=== PATIENT | male | born 1985 | race Caucasian/White ===

== ENCOUNTER 2018-12-20 05:20 | Observation (INO) | payer BC ==
[2018-12-20] MEDS ORDERED: Sodium Chloride 0.9% 1000 ML 1,000 ML IV STA (06:19)
[2018-12-20] MEDS ORDERED: Sodium Chloride 0.9% 1000 ML 1,000 ML ONE ×2 (06:39→08:28)
[2018-12-20 06:50] LABS: BASOPHIL % 0.3 % (0.0-0.4); Basophil (Absolute #) 0.05 (0-0.4); Eosinophil % 2.1 % (0.00-5.0); Eosinophil (Absolute #) 0.34 (0-0.5); Granulocytes % 72.7 % (36.0-66.0); Hematocrit 45.5 % (42-50); Hemoglobin 14.9 gm/dl (12.5-18.0); Lymphocyte (Absolute #) 2.89 (1.0-4.6); Lymphocytes % 18.3 % (24.0-44.0); Mean Cell Volume 84.6 fl (78-100); Mean Corpuscular Hemoglobin 27.7 pg (26-32); Mean Corpuscular Hgb Concent. 32.7 g/dl (32-36); Mean Platelet Volume 11.4 fl (6-9.5); Monocyte (Absolute #) 1.05 (0.0-1.3); Monocytes % 6.6 % (0.0-12.0); Platelet Count 271 K/mm3 (150-450); Red Blood Count 5.38 M/mm3 (4.1-5.6); Red Cell Distribution Width 13.4 % (11.5-14.0); White Blood Count 15.8 K/mm3 (4.0-10.5)
--- NOTE | 2018-12-20 06:59 | ERPHSYRPT ---
- History of Present Illness Historian: patient Exam Limitations: no limitations Patient Subjective Stated Complaint: pt states he has been having chest/abd pain since saturday. pain begins in lower chest and radiates down through stomach. Triage Nursing Assessment: pt alert and oriented, answers questions approp. pt ambulatory with steady gait noted. respirations nonlabored with lungs cta. abd soft and tender to luq. bowel osunds present x4 Timing/Duration: day(s) Activities at Onset: none Quality: aching, dullness Abdominal Pain Onset Location: RUQ, flank (upper back on right) Pain Radiation: flank Severity of Pain-Max: moderate Severity of Pain-Current: moderate Modifying Factors: Improves With: nothing Hx Tetanus, Diphtheria Vaccination/Date Given: Yes Hx Influenza Vaccination/Date Given: No Hx Pneumococcal Vaccination/Date Given: No Immunizations Up to Date: Yes <HILARIO RESENDEZ - Last Filed: 12/20/18 06:53> <HAILE STEELE - Last Filed: 12/20/18 12:50> - History of Present Illness Physician History: Pt is a 33 y/o male with an abdominal pain, especially on the RUQ and some radiation to R back. Pt states, he had the pain for a while, and a couple of days he took Nexium, and OTC meds, that helped him a little but than the pain is back. Pt denies F/C/S. No SOB or cough. No dysuria, frequency and urgency. No N/V. He had diarrhea a couple of days ago, but it improved now. ( HILARIO RESENDEZ) Allergies/Adverse Reactions: No Known Drug Allergies Allergy (Verified 12/20/18 05:40) Home Medications: Metoprolol Succinate 25 mg Xl* [Toprol-Xl 25MG Tablets] 25 mg PO DAILY [History] - Review of Systems Constitutional: No Fever, No Chills Eyes: No Symptoms Ears, Nose, & Throat: No Symptoms Respiratory: No Cough, No Dyspnea Cardiac: No Chest Pain, No Edema, No Syncope Abdominal/Gastrointestinal: Abdominal Pain, Diarrhea Genitourinary Symptoms: No Dysuria Musculoskeletal: No Back Pain, No Neck Pain Skin: No Rash Neurological: No Dizziness, No Focal Weakness, No Sensory Changes <HILARIO RESENDEZ - Last Filed: 12/20/18 06:53> - Past Medical History Pertinent Past Medical History: Yes Cardiac History: Hypertension Other Medical History: has seen blocker heated metal forms at [facility]- approx 1.5 yrs - Past Surgical History Past Surgical History: Yes Other Surgical History: lymph node removed from - Social History Smoking Status: Never smoker Exposure to second hand smoke: Yes Drug Use: none Patient Lives Alone: No <HILARIO RESENDEZ - Last Filed: 12/20/18 06:53> - Physical Exam General Appearance: mild distress Eye Exam: PERRL/EOMI, eyes nml inspection Ears, Nose, Throat Exam: normal ENT inspection, pharynx normal, moist mucous membranes Neck Exam: normal inspection, non-tender, supple, full range of motion Respiratory Exam: normal breath sounds, lungs clear, No respiratory distress Cardiovascular Exam: regular rate/rhythm, normal heart sounds Gastrointestinal/Abdomen Exam: tenderness (RUQ, and some CVA discomfort on the R ) Back Exam: normal inspection, normal range of motion, No CVA tenderness, No vertebral tenderness Extremity Exam: normal inspection, normal range of motion, pelvis stable Neurologic Exam: alert, oriented x 3, cooperative, normal mood/affect, nml cerebellar function, sensation nml, No motor deficits SpO2: 98 <HILARIO RESENDEZ - Last Filed: 12/20/18 06:53> - Nursing Vital Signs Nursing Vital Signs: Initial Vital Signs Temperature 97.7 F 12/20/18 05:27 Pulse Rate 86 12/20/18 05:27 Respiratory Rate 18 12/20/18 05:27 Blood Pressure 181/89 12/20/18 05:27 O2 Sat by Pulse Oximetry 98 12/20/18 05:27 Pain Scale Pain Intensity 6 - CT Exams Abdomen/Pelvis CT Interpretation: Tele-radiologist Report (CT abdomen and pelvis: Impression 1. Dilated gallbladder with . Cholecystic edema. there is likely a tiny obstructing stone in the gallbladder neck on image 21 series 2. These findings most likely represent acute cholecystitis 2. Hepatic steatosis. 3. Splenomegaly. The goal is a history of high blood pressure apparently complaining of pain in the area that radiated from about the epigastric around the right flank when the 55th no vomiting or vomiting here a white count of 13 vitals are stable.), appendicitis ( good on. He has a CBC that shows a dilated gallbladder with pericholecystic cholecystic edema a few there is likely a tiny obstructing stone in the gallbladder neck on 31 series. Findings most likely represent acute cholecystitis he has hepatic steatosis or megaly family and lipase basically he got some IV fluids that he got a total of) <HAILE STEELE - Last Filed: 12/20/18 12:50> Ordered Tests: Active Orders 24 hr Category Date Time Status Bedrest with BRP/BSC ROUTINE Activity 12/20/18 10:09 Active Call Admit Doctor for Orders ON ADMISSION Care 12/20/18 10:09 Active Code Status Order ROUTINE Care 12/20/18 10:09 Active IV Care Q6H Care 12/20/18 10:09 Active Intake and Output Q12H Care 12/20/18 10:[address] in Observation ROUTINE Care 12/20/18 10:09 Active Telemetry q6h Care 12/20/18 10:09 Active Consult Surgery ROUTINE Cons 12/20/18 10:09 Completed NPO Diet 12/20/18 10:11 Active ABDOMEN AND PELVIS W CONTRAST [CT] Stat Exams 12/20/18 06:20 Taken CBC W DIFF AM.LAB Lab 12/21/18 04:00 Ordered CBC W DIFF Stat Lab 12/20/18 06:19 Completed CMP AM.LAB Lab 12/21/18 04:00 Ordered CMP Stat Lab 12/20/18 07:00 Completed LIPASE Stat Lab 12/20/18 07:00 Completed TROPONIN Q3H Lab 12/20/18 07:00 Completed UA W/RFX UR CULTURE Stat Lab 12/20/18 07:15 Completed Pulse Oximetry CONTINUOUS RT 12/20/18 10:09 Active Transfer Order Routine Transfer 12/20/18 Completed Medication Summary Generic Name Dose Route Start Last Admin Trade Name Freq PRN Reason Stop Dose Admin Hydromorphone HCl 1 mg 12/20/18 10:30 12/20/18 11:05 Dilaudid 2 Mg Injection IV 12/25/18 10:29 1 mg Q4H PRN PRN Administration PAIN Sodium Chloride 1,000 mls @ 100 mls/hr 12/20/18 10:09 Sodium Chloride 0.9% 1000 Ml IV 01/19/19 10:08 .Q10H EMELY Lactated Ringer's 1,000 mls @ 100 mls/hr 12/20/18 11:30 Lactated Ringers IV 12/20/18 21:29 .Q10H EMELY Cefoxitin Sodium 2 gm in 50 mls @ 100 mls/hr 12/20/18 12:00 Mefoxin 2 Gm Premix IV 12/20/18 20:00 ONCALLTOOR EMELY Metoprolol Succinate 25 mg 12/20/18 12:00 12/20/18 12:46 Toprol-Xl 25mg Tablets PO 01/19/19 11:59 25 mg DAILY EMELY Administration Ondansetron HCl 4 mg 12/20/18 10:09 Zofran 4 Mg/2 Ml Vial IV 01/19/19 10:08 Q6H PRN PRN NAUSEA/VOMITING Discontinued Medications Generic Name Dose Route Start Last Admin Trade Name Freq PRN Reason Stop Dose Admin Sodium Chloride 1,000 mls @ 999 mls/hr 12/20/18 06:19 12/20/18 08:24 Sodium Chloride 0.9% 1000 Ml IV 12/20/18 07:19 Infused .Q1H1M STA Infusion Sodium Chloride Confirm 12/20/18 06:39 Sodium Chloride 0.9% 1000 Ml Administered 12/20/18 06:40 Dose 1,000 mls @ ud .ROUTE .STK-MED ONE Sodium Chloride Confirm 12/20/18 08:28 Sodium Chloride 0.9% 1000 Ml Administered 12/20/18 08:29 Dose 1,000 mls @ ud .ROUTE .STK-MED ONE Sodium Chloride 1,000 mls @ 100 mls/hr 12/20/18 08:45 12/20/18 08:40 Sodium Chloride 0.9% 1000 Ml IV 01/19/19 08:44 100 mls/hr .Q10H EMELY Administration Morphine Sulfate 2 mg 12/20/18 07:02 12/20/18 07:09 Morphine Sulfate 2 Mg Inj IV 12/20/18 07:03 2 mg STAT ONE Administration Morphine Sulfate Confirm 12/20/18 07:07 Morphine Sulfate 2 Mg Inj Administered 12/20/18 07:08 Dose 2 mg .ROUTE .STK-MED ONE Morphine Sulfate 4 mg 12/20/18 08:18 12/20/18 08:35 Morphine Sulfate 4 Mg Inj IV 12/20/18 08:19 4 mg STAT ONE Administration Morphine Sulfate Confirm 12/20/18 08:27 Morphine Sulfate 4 Mg Inj Administered 12/20/18 08:28 Dose 4 mg .ROUTE .STK-MED ONE Morphine Sulfate 4 mg 12/20/18 09:06 12/20/18 09:12 Morphine Sulfate 4 Mg Inj IV 12/20/18 09:07 4 mg STAT ONE Administration Morphine Sulfate Confirm 12/20/18 09:08 Morphine Sulfate 4 Mg Inj Administered 12/20/18 09:09 Dose 4 mg .ROUTE .STK-MED ONE Morphine Sulfate 4 mg 12/20/18 10:09 12/20/18 10:25 Morphine Sulfate 4 Mg Inj IV 12/25/18 10:08 4 mg Q4H PRN PRN Administration PAIN Ondansetron HCl 4 mg 12/20/18 07:18 12/20/18 07:20 Zofran 4 Mg/2 Ml Vial IV 12/20/18 07:19 4 mg STAT ONE Administration Ondansetron HCl Confirm 12/20/18 07:19 Zofran 4 Mg/2 Ml Vial Administered 12/20/18 07:20 Dose 4 mg .ROUTE .STK-MED ONE Ondansetron HCl 4 mg 12/20/18 09:06 12/20/18 09:11 Zofran 4 Mg/2 Ml Vial IV 12/20/18 09:07 4 mg STAT ONE Administration Ondansetron HCl Confirm 12/20/18 09:08 Zofran 4 Mg/2 Ml Vial Administered 12/20/18 09:09 Dose 4 mg .ROUTE .STK-MED ONE Promethazine HCl 25 mg 12/20/18 08:18 12/20/18 09:04 Phenergan 25 Mg Inj IM 12/20/18 08:19 Not Given STAT ONE Promethazine HCl Confirm 12/20/18 08:27 Phenergan 25 Mg Inj Administered 12/20/18 08:28 Dose 25 mg .ROUTE .STK-MED ONE Lab/Rad Data: Laboratory Result Diagrams 12/20/18 06:19 12/20/18 07:00 Laboratory Results 12/20/18 12/20/18 12/20/18 Range/Units 07:15 07:00 07:00 WBC (4.0-10.5) K/mm3 RBC (4.1-5.6) M/mm3 Hgb (12.5-18.0) gm/dl Hct (42-50) % MCV (78-100) fl MCH (26-32) pg MCHC (32-36) g/dl RDW (11.5-14.0) % Plt Count (150-450) K/mm3 MPV (6-9.5) fl Gran % (36.0-66.0) % Eos # (Auto) (0-0.5) Absolute Lymphs (auto) (1.0-4.6) Absolute Monos (auto) (0.0-1.3) Lymphocytes % (24.0-44.0) % Monocytes % (0.0-12.0) % Eosinophils % (0.00-5.0) % Basophils % (0.0-0.4) % Absolute Granulocytes (1.4-6.9) Basophils # (0-0.4) Sodium 142 (137-145) mmol/L Potassium 4.5 (3.5-5.1) mmol/L Chloride 103 (98-107) mmol/L Carbon Dioxide 29 (22-30) mmol/L Anion Gap 14.2 (5-15) MEQ/L BUN 12 (9-20) mg/dL Creatinine 1.02 (0.66-1.25) mg/dL Estimated GFR > 60.0 ML/MIN Glucose 123 H (74-106) mg/dL Calcium 9.7 (8.4-10.2) mg/dL Total Bilirubin 0.50 (0.2-1.3) mg/dL AST 23 (17-59) U/L ALT 40 (0-50) U/L Alkaline Phosphatase 77 (38-126) U/L Troponin I < 0.012 (0.000-0.034) ng/mL Serum Total Protein 7.4 (6.3-8.2) g/dL Albumin 4.2 (3.5-5.0) g/dL Lipase 35 (23-300) U/L Urine Color YELLOW (YELLOW) Urine Appearance CLEAR (CLEAR) Urine pH 7.0 (5-6) Ur Specific [place] 1.024 (1.005-1.025) Urine Protein 30 (Negative) Urine Ketones NEGATIVE (NEGATIVE) Urine Blood NEGATIVE (0-5) Vincent/ul Urine Nitrite NEGATIVE (NEGATIVE) Urine Bilirubin NEGATIVE (NEGATIVE) Urine Urobilinogen NEGATIVE (0-1) mg/dL Ur Leukocyte Esterase NEGATIVE (NEGATIVE) Urine WBC (Auto) NONE (0-5) /HPF Urine RBC (Auto) NONE (0-2) /HPF U Hyaline Cast (Auto) 3-5 (0-2) /LPF Urine Bacteria (Auto) NONE (NEGATIVE) /HPF Urine Mucus (Auto) SLIGHT (NEGATIVE) /HPF Urine Culture Reflexed NO (NO) Urine Glucose NEGATIVE (NEGATIVE) mg/dL 12/20/18 Range/Units 06:19 WBC 15.8 H (4.0-10.5) K/mm3 RBC 5.38 (4.1-5.6) M/mm3 Hgb 14.9 (12.5-18.0) gm/dl Hct 45.5 (42-50) % MCV 84.6 (78-100) fl MCH 27.7 (26-32) pg MCHC 32.7 (32-36) g/dl RDW 13.4 (11.5-14.0) % Plt Count 271 (150-450) K/mm3 MPV 11.4 H (6-9.5) fl Gran % 72.7 H (36.0-66.0) % Eos # (Auto) 0.34 (0-0.5) Absolute Lymphs (auto) 2.89 (1.0-4.6) Absolute Monos (auto) 1.05 (0.0-1.3) Lymphocytes % 18.3 L (24.0-44.0) % Monocytes % 6.6 (0.0-12.0) % Eosinophils % 2.1 (0.00-5.0) % Basophils % 0.3 (0.0-0.4) % Absolute Granulocytes 11.50 H (1.4-6.9) Basophils # 0.05 (0-0.4) Sodium (137-145) mmol/L Potassium (3.5-5.1) mmol/L Chloride (98-107) mmol/L Carbon Dioxide (22-30) mmol/L Anion Gap (5-15) MEQ/L BUN (9-20) mg/dL Creatinine (0.66-1.25) mg/dL Estimated GFR ML/MIN Glucose (74-106) mg/dL Calcium (8.4-10.2) mg/dL Total Bilirubin (0.2-1.3) mg/dL AST (17-59) U/L ALT (0-50) U/L Alkaline Phosphatase (38-126) U/L Troponin I (0.000-0.034) ng/mL Serum Total Protein (6.3-8.2) g/dL Albumin (3.5-5.0) g/dL Lipase (23-300) U/L Urine Color (YELLOW) Urine Appearance (CLEAR) Urine pH (5-6) Ur Specific [place] (1.005-1.025) Urine Protein (Negative) Urine Ketones (NEGATIVE) Urine Blood (0-5) Vincent/ul Urine Nitrite (NEGATIVE) Urine Bilirubin (NEGATIVE) Urine Urobilinogen (0-1) mg/dL Ur Leukocyte Esterase (NEGATIVE) Urine WBC (Auto) (0-5) /HPF Urine RBC (Auto) (0-2) /HPF U Hyaline Cast (Auto) (0-2) /LPF Urine Bacteria (Auto) (NEGATIVE) /HPF Urine Mucus (Auto) (NEGATIVE) /HPF Urine Culture Reflexed (NO) Urine Glucose (NEGATIVE) mg/dL <HILARIO RESENDEZ - Last Filed: 12/20/18 06:53> - Progress Progress: improved <HAILE STEELE - Last Filed: 12/20/18 12:50> - Progress Progress Note: 12/20/18 06:59 Pt complains of abdominal pain. CT of abdomen and labs were ordered. Pt was signed out to Dr Steele. (HILARIO RESENDEZ) 12/20/18 08:18 This is a 33-year-old white male initially seen by Dr. Resendez patient with complaint of right upper quadrant abdominal pain radiating to the right flank symptoms been going on for approximately a week he has states she has been having no nausea or vomiting initially but has vomited since he has been here he has no urinary symptoms he is not short of breath. Past medical history includes high blood pressure apparently was seen by a blocker heated metal forms 1-1/2 years ago. On physical examination vitals temperature 97.7 pulse 86 respiration 18 blood pressure 181/89 sats 98%. Head atraumatic normocephalic. Eyes PERRLA EOMI fundi are unremarkable. Ears TMs merrill intact bilaterally. Nose is clear. Throat is clear. Neck is supple. Lungs clear. Heart regular rate and rhythm without murmur. Abdomen right upper quadrant tenderness positive bowel sounds negative masses negative rebound. Extremities full range of motion pulse equal and symmetrical 2 over 4. Back right flank tenderness. Neuro cranial nerves II through XII are intact DTRs symmetrical 2 over 4 Angella Coma Scale is 15. EKG sinus arrhythmia [address] or T wave changes are noted chemistry sodium 142 potassium 4.5 chloride 103 bicarbonate 29 BUN 12 creatinine 1.02 glucose 123. White blood cell 15.8 hemoglobin 14.9 hematocrit 45.[address] of the patient's abdomen is pending. Patient apparently received 2 mg of morphine ordered by Dr. Resendez. Also 1 L of normal saline also Zofran 4 mg IV. Patient continues to complain of pain in the right upper quadrant. Will go ahead and give patient Phenergan 25 mg IM morphine [address] results. 12/20/18 08:[address] of the abdomen impression 1 dilated gallbladder with pericholecystic edema. There is likely a tiny obstructing stone in the gallbladder neck on image 31 series 2. These findings most likely represent acute cholecystitis. 2. Hepatic steatosis 3. Splenomegaly. Case is discussed with Dr. looking independent marketing consultant for surgery he recommends placing the patient on observation under the hospitalist and obtaining a surgery consult. 12/20/18 09:07 Patient's case is discussed with Dr. Pearson. Will place patient on observation provide IV fluids keep patient nothing by mouth provide morphine and Zofran obtain surgery consult. (HAILE STEELE) <HILARIO RESENDEZ - Last Filed: 12/20/18 06:53> - Departure Departure Disposition: Observation Critical Care Time: No <HAILE STEELE - Last Filed: 12/20/18 12:50> - Departure Clinical Impression: Right upper quadrant abdominal pain, Cholecystitis Condition: Fair
[2018-12-20] MEDS ORDERED: MORPHINE SULFATE 2 MG INJ IV ONE (07:02)
[2018-12-20] MEDS ORDERED: MORPHINE SULFATE 2 MG INJ ONE (07:07)
[2018-12-20] MEDS ORDERED: Zofran 4 MG/2 ML VIAL IV ONE ×3 (07:18→12:09)
[2018-12-20 07:19] LABS: ALBUMIN 4.2 g/dL (3.5-5.0); ALKALINE PHOSPHATASE 77 U/L (38-126); ANION GAP 14.2 MEQ/L (5-15); BLOOD UREA NITROGEN 12 mg/dL (9-20); CHLORIDE 103 mmol/L (98-107); Calcium 9.7 mg/dL (8.4-10.2); Carbon Dioxide 29 mmol/L (22-30); Creatinine 1 1.02 mg/dL (0.66-1.25); Glucose 123 mg/dL (74-106); LIPASE 35 U/L (23-300); Potassium 4.5 mmol/L (3.5-5.1); SGOT/AST 23 U/L (17-59); SGPT/ALT 40 U/L (0-50); SODIUM 142 mmol/L (137-145); Total Protein 7.4 g/dL (6.3-8.2)
[2018-12-20] MEDS ORDERED: Zofran 4 MG/2 ML VIAL ONE ×2 (07:19→09:08)
[2018-12-20 07:40] LABS: Appearance CLEAR (CLEAR); Bilirubin NEGATIVE (NEGATIVE); Blood NEGATIVE Ery/ul (0-5); Glucose NEGATIVE (NEGATIVE); Ketones NEGATIVE (NEGATIVE); Leukocyte Esterase NEGATIVE (NEGATIVE); Mucus SLIGHT /HPF (NEGATIVE); Nitrite NEGATIVE (NEGATIVE); Protein,Urine Dip 30 (Negative); Specific Gravity 1.024 (1.005-1.025); Urobilinogen NEGATIVE mg/dL (0-1)
[2018-12-20] MEDS ORDERED: Phenergan 25 MG INJ IM ONE (08:18)
[2018-12-20] MEDS ORDERED: MORPHINE SULFATE 4 MG INJ IV ONE ×2 (08:18→09:06)
[2018-12-20] MEDS ORDERED: Phenergan 25 MG INJ ONE (08:27)
[2018-12-20] MEDS ORDERED: MORPHINE SULFATE 4 MG INJ ONE ×2 (08:27→09:08)
[2018-12-20] MEDS ORDERED: Sodium Chloride 0.9% 1000 ML 1,000 ML IV SCH ×2 (08:45→10:09)
[2018-12-20] MEDS ORDERED: MORPHINE SULFATE 4 MG INJ IV PRN ×2 (10:09→18:18)
[2018-12-20] MEDS ORDERED: Zofran 4 MG/2 ML VIAL IV PRN ×2 (10:09→18:16)
[2018-12-20] MEDS ORDERED: DILAUDID 2 MG INJECTION IV PRN (10:30)
[2018-12-20] MEDS ORDERED: Lactated Ringers 1,000 ML IV SCH (11:30)
[2018-12-20] MEDS ORDERED: MEFOXIN 2 GM PREMIX** 2 GM/50 ML ML IV SCH (12:00)
[2018-12-20] MEDS ORDERED: BRIDION 200MG/2ML IV ONE (12:09)
[2018-12-20] MEDS ORDERED: Decadron 4 MG INJ IV ONE (12:09)
[2018-12-20] MEDS ORDERED: TORAdol 30 mg Injection IJ ONE (12:09)
[2018-12-20] MEDS ORDERED: SUBLIMAZE 100 MCG/2 ML IV ONE (12:09)
[2018-12-20] MEDS ORDERED: Quelicin Fliptop 200 MG/10 ML IJ ONE (12:09)
[2018-12-20] MEDS ORDERED: Zemuron 100 MG/10 ML IJ ONE (12:09)
[2018-12-20] MEDS ORDERED: DIPRIVAN 200 MG/20 ML IV ONE (12:09)
[2018-12-20] MEDS: Toprol-Xl 25MG Tablets PO SCH (12:46)
--- NOTE | 2018-12-20 14:42 | PCM.HP ---
History of Present Illness - Chief Complaint Chief Complaint: Ruq abdominal pain History of Present Illness: Mr.GOLISH RIVAS is a 33 year old male pt of DR. Forde in [place] with PMHx HTN and obesity who came to ER c/o 2d of abd pain. Pain is epigastric and RUQ, with some Vomiting, subjective fever. Worse with movement. Had received morphine in ER; dilaudid is helping his pain more. He receive 1mg dilaudid about 3.5 h ago and is still having 7/[address] abd/pelvis with dilated GB with pericholestatic edema, acute cholecystitis. Surgery team is on the way. WBC 15.8, hgb 14.9. Chemistry wnl aside from BS 123. lipase nl. Tbili 0.5. UA wnl. His BP has been elevated; has just been given toprol 25mg. - Review of Systems Constitutional: Fever Cardiac: Edema Abdominal/Gastrointestinal: Abdominal Pain, Nausea, Vomiting All Other Systems: Reviewed and Negative Medications & Allergies Home Medications: Home Medication List Metoprolol Succinate 25 mg Xl* [Toprol-Xl 25MG Tablets] 25 mg PO DAILY [History Confirmed 12/20/18] Allergies/Adverse Reactions: Allergies Allergy/AdvReac Type Severity Reaction Status Date / Time No Known Drug Allergies Allergy Verified 12/20/18 05:40 - Past Medical History Past Medical History: Yes Neurological History: No Pertinent History ENT History: No Pertinent History Cardiac History: Hypertension Respiratory History: No Pertinent History Endocrine Medical History: No Pertinent History Musculoskelatal History: No Pertinent History GI Medical History: No Pertinent History History: No Pertinent History Pyscho-Social History: No Pertinent History Male Reproductive Disorders: No Pertinent History Comment: n/a - Past Surgical History Past Surgical History: Yes Neuro Surgical History: No Pertinent History Cardiac History: No Pertinent History Respiratory Surgery: No Pertinent History GI Surgical History: No Pertinent History Genitourinary Surgical Hx: No Pertinent History Musculskeletal Surgical Hx: No Pertinent History Male Surgical History: No Pertinent History Other Surgical History: Lymph node removed from the groin at 6yr. benign - Social History Smoking Status: Never smoker How long have you smoked: . Exposure to second hand smoke: No Alcohol: Occasionally, Weekly Drug Use: none - Physical Exam Vital Signs: Vital Signs - 24 hr Temp Pulse Pulse Resp BP Pulse Ox 12/20/18 12:49 98.3 F 61 16 167/77 94 L 12/20/18 11:30 98.3 F 61 16 167/77 94 L 12/20/18 10:40 98.3 F 61 16 167/77 94 L 12/20/18 10:30 98.3 F 61 18 167/77 94 L 12/20/18 10:10 98.3 F 61 18 167/77 94 L 12/20/18 10:09 98.3 F 61 18 167/77 94 L 12/20/18 09:50 98.3 F 61 16 167/77 12/20/18 09:16 20 169/95 96 12/20/18 07:15 83 16 170/92 98 12/20/18 07:00 98 12/20/18 05:27 97.7 F 86 86 18 181/89 98 General Appearance: mild distress, alert, obese Neurologic Exam: oriented x 3, cooperative Eye Exam: eyes nml inspection Ears, Nose, Throat Exam: moist mucous membranes Neck Exam: normal inspection, non-tender, No lymphadenopathy Respiratory Exam: normal breath sounds, lungs clear, No crackles/rales, No rhonchi Cardiovascular Exam: regular rate/rhythm, normal heart sounds, No murmur Gastrointestinal/Abdomen Exam: soft, normal bowel sounds, tenderness (RLQ, RUQ, and epigastrum), No mass, No guarding, No rebound Back Exam: normal inspection, No rash Extremity Exam: swelling (1+ pretibial edema bilat) Skin Exam: warm, dry, No normal color (face flushed), No rash Results - Labs Lab/Micro Results: Lab Results-Last 24 Hours 12/20/18 12/20/18 12/20/18 Range/Units 06:19 07:00 07:00 WBC 15.8 H (4.0-10.5) K/mm3 RBC 5.38 (4.1-5.6) M/mm3 Hgb 14.9 (12.5-18.0) gm/dl Hct 45.5 (42-50) % MCV 84.6 (78-100) fl MCH 27.7 (26-32) pg MCHC 32.7 (32-36) g/dl RDW 13.4 (11.5-14.0) % Plt Count 271 (150-450) K/mm3 MPV 11.4 H (6-9.5) fl Gran % 72.7 H (36.0-66.0) % Eos # (Auto) 0.34 (0-0.5) Absolute Lymphs (auto) 2.89 (1.0-4.6) Absolute Monos (auto) 1.05 (0.0-1.3) Lymphocytes % 18.3 L (24.0-44.0) % Monocytes % 6.6 (0.0-12.0) % Eosinophils % 2.1 (0.00-5.0) % Basophils % 0.3 (0.0-0.4) % Absolute Granulocytes 11.50 H (1.4-6.9) Basophils # 0.05 (0-0.4) Sodium 142 (137-145) mmol/L Potassium 4.5 (3.5-5.1) mmol/L Chloride 103 (98-107) mmol/L Carbon Dioxide 29 (22-30) mmol/L Anion Gap 14.2 (5-15) MEQ/L BUN 12 (9-20) mg/dL Creatinine 1.02 (0.66-1.25) mg/dL Estimated GFR > 60.0 ML/MIN Glucose 123 H (74-106) mg/dL Calcium 9.7 (8.4-10.2) mg/dL Total Bilirubin 0.50 (0.2-1.3) mg/dL AST 23 (17-59) U/L ALT 40 (0-50) U/L Alkaline Phosphatase 77 (38-126) U/L Troponin I < 0.012 (0.000-0.034) ng/mL Serum Total Protein 7.4 (6.3-8.2) g/dL Albumin 4.2 (3.5-5.0) g/dL Lipase 35 (23-300) U/L Urine Color (YELLOW) Urine Appearance (CLEAR) Urine pH (5-6) Ur Specific [place] (1.005-1.025) Urine Protein (Negative) Urine Ketones (NEGATIVE) Urine Blood (0-5) Vincent/ul Urine Nitrite (NEGATIVE) Urine Bilirubin (NEGATIVE) Urine Urobilinogen (0-1) mg/dL Ur Leukocyte Esterase (NEGATIVE) Urine WBC (Auto) (0-5) /HPF Urine RBC (Auto) (0-2) /HPF U Hyaline Cast (Auto) (0-2) /LPF Urine Bacteria (Auto) (NEGATIVE) /HPF Urine Mucus (Auto) (NEGATIVE) /HPF Urine Culture Reflexed (NO) Urine Glucose (NEGATIVE) mg/dL 12/20/18 Range/Units 07:15 WBC (4.0-10.5) K/mm3 RBC (4.1-5.6) M/mm3 Hgb (12.5-18.0) gm/dl Hct (42-50) % MCV (78-100) fl MCH (26-32) pg MCHC (32-36) g/dl RDW (11.5-14.0) % Plt Count (150-450) K/mm3 MPV (6-9.5) fl Gran % (36.0-66.0) % Eos # (Auto) (0-0.5) Absolute Lymphs (auto) (1.0-4.6) Absolute Monos (auto) (0.0-1.3) Lymphocytes % (24.0-44.0) % Monocytes % (0.0-12.0) % Eosinophils % (0.00-5.0) % Basophils % (0.0-0.4) % Absolute Granulocytes (1.4-6.9) Basophils # (0-0.4) Sodium (137-145) mmol/L Potassium (3.5-5.1) mmol/L Chloride (98-107) mmol/L Carbon Dioxide (22-30) mmol/L Anion Gap (5-15) MEQ/L BUN (9-20) mg/dL Creatinine (0.66-1.25) mg/dL Estimated GFR ML/MIN Glucose (74-106) mg/dL Calcium (8.4-10.2) mg/dL Total Bilirubin (0.2-1.3) mg/dL AST (17-59) U/L ALT (0-50) U/L Alkaline Phosphatase (38-126) U/L Troponin I (0.000-0.034) ng/mL Serum Total Protein (6.3-8.2) g/dL Albumin (3.5-5.0) g/dL Lipase (23-300) U/L Urine Color YELLOW (YELLOW) Urine Appearance CLEAR (CLEAR) Urine pH 7.0 (5-6) Ur Specific [place] 1.024 (1.005-1.025) Urine Protein 30 (Negative) Urine Ketones NEGATIVE (NEGATIVE) Urine Blood NEGATIVE (0-5) Vincent/ul Urine Nitrite NEGATIVE (NEGATIVE) Urine Bilirubin NEGATIVE (NEGATIVE) Urine Urobilinogen NEGATIVE (0-1) mg/dL Ur Leukocyte Esterase NEGATIVE (NEGATIVE) Urine WBC (Auto) NONE (0-5) /HPF Urine RBC (Auto) NONE (0-2) /HPF U Hyaline Cast (Auto) 3-5 (0-2) /LPF Urine Bacteria (Auto) NONE (NEGATIVE) /HPF Urine Mucus (Auto) SLIGHT (NEGATIVE) /HPF Urine Culture Reflexed NO (NO) Urine Glucose NEGATIVE (NEGATIVE) mg/dL - Radiology Impressions Radiology Exams & Impressions: Radiology Procedures Category Date Time Status ABDOMEN AND PELVIS W CONTRAST [CT] Stat Exams 12/20/18 06:20 Taken Assessment/Plan (1) Cholecystitis Current Visit: Yes Status: Acute Assessment & Plan: Surgery coming to do cholecystectomy, thank you. Code(s): K81.9 - CHOLECYSTITIS, UNSPECIFIED (2) HTN (hypertension) Current Visit: Yes Status: Acute Qualifiers: Hypertension type: essential hypertension Qualified Code(s): I10 - Essential (primary) hypertension Assessment & Plan: metoprolol on board, bp has been elevated. pt still in pain. Code(s): I10 - ESSENTIAL (PRIMARY) HYPERTENSION VTE Quality Measures - VTE Quality Measures VTE Mechanical Contraindication: Medical Contraindication
[2018-12-20] MEDS: DILAUDID 2 MG INJECTION IV PRN ×3 (14:46→23:59)
[2018-12-20] MEDS ORDERED: Lactated Ringers 1,000 ML IV ONE (15:06)
[2018-12-20] MEDS ORDERED: Sensorcaine 0.25% 10 ML ONE (15:06)
[2018-12-20] MEDS ORDERED: SUBLIMAZE 100 MCG/2 ML ONE (16:47)
[2018-12-20] MEDS ORDERED: DILAUDID 2 MG INJECTION ONE (16:52)
--- NOTE | 2018-12-20 17:46 | XRAY ---
Indication: Abdomen pain. Nausea, vomiting, and heartburn. Multiple contiguous axial images obtained through the abdomen and pelvis using 80 cc Isovue 370 contrast only. Comparison: None Lung bases demonstrates small left base calcified granuloma. No infiltrate or effusion. Heart is not enlarged. Noncontrasted stomach and bowel loops appear nonobstructed. Normal appendix. No free fluid/air. Gallbladder appears mildly distended with tiny stone near the neck and mild pericholecystic fluid concerning for cholecystitis. No biliary distention. Spleen is enlarged measuring 16 cm in CC dimension. Remaining liver, pancreas, spleen, adrenal glands, kidneys, ureters, bladder, and aorta appear unremarkable. No pathologic retroperitoneal lymphadenopathy. Osseous structures intact. No ventral or inguinal hernias. Impression: 1. Abnormal distended gallbladder with tiny gallstone and pericholecystic fluid. Rule out cholecystitis. 2. Splenomegaly. Comment: Preliminary interpretation was made by [facility]. No discrepancy. CTDI 23.68
[2018-12-20] MEDS ORDERED: D5W/0.45NS W/ 20mEq KCl 1000 ML 1,000 ML IV ONE (18:07)
[2018-12-20] MEDS ORDERED: FEVERALL 650 MG PR PRN (18:13)
[2018-12-20] MEDS: D5W/0.45NS W/ 20mEq KCl 1000 ML 1,000 ML IV SCH (18:35)
[2018-12-20] MEDS: Zosyn 3.375GM/100 Ml D5W 3.375 GM/100 ML IVPB IV SCH (19:35)
[2018-12-21] MEDS: DILAUDID 2 MG INJECTION IV PRN ×3 (04:01→19:32)
[2018-12-21] MEDS: D5W/0.45NS W/ 20mEq KCl 1000 ML 1,000 ML IV SCH ×2 (05:26→16:32)
[2018-12-21] MEDS: Zosyn 3.375GM/100 Ml D5W 3.375 GM/100 ML IVPB IV SCH ×4 (05:30→18:55)
[2018-12-21 06:15] LABS: BASOPHIL % 0.2 % (0.0-0.4); Basophil (Absolute #) 0.03 (0-0.4); Eosinophil % 0.2 % (0.00-5.0); Eosinophil (Absolute #) 0.04 (0-0.5); Granulocyte Absolute (ANC) 14.69 (1.4-6.9); Granulocytes % 80.6 % (36.0-66.0); Hematocrit 38.1 % (42-50); Hemoglobin 12.5 gm/dl (12.5-18.0); Lymphocyte (Absolute #) 2.14 (1.0-4.6); Lymphocytes % 11.8 % (24.0-44.0); Mean Cell Volume 85.8 fl (78-100); Mean Corpuscular Hemoglobin 28.2 pg (26-32); Mean Corpuscular Hgb Concent. 32.8 g/dl (32-36); Mean Platelet Volume 11.2 fl (6-9.5); Monocyte (Absolute #) 1.31 (0.0-1.3); Monocytes % 7.2 % (0.0-12.0); Platelet Count 286 K/mm3 (150-450); Red Blood Count 4.44 M/mm3 (4.1-5.6); Red Cell Distribution Width 13.4 % (11.5-14.0); White Blood Count 18.2 K/mm3 (4.0-10.5)
[2018-12-21 06:39] LABS: ALBUMIN 3.7 g/dL (3.5-5.0); ALKALINE PHOSPHATASE 58 U/L (38-126); ANION GAP 13.3 MEQ/L (5-15); BLOOD UREA NITROGEN 10 mg/dL (9-20); CHLORIDE 102 mmol/L (98-107); Carbon Dioxide 28 mmol/L (22-30); Creatinine 1 0.97 mg/dL (0.66-1.25); Glucose 129 mg/dL (74-106); Potassium 4.8 mmol/L (3.5-5.1); SGOT/AST 31 U/L (17-59); SGPT/ALT 32 U/L (0-50); SODIUM 138 mmol/L (137-145); Total Protein 6.8 g/dL (6.3-8.2)
[2018-12-21] MEDS ORDERED: TYLENOL 325 MG PO PRN (07:19)
[2018-12-21] MEDS: NORCO 5/325 MG PO PRN ×2 (08:10→16:33)
[2018-12-21] MEDS: Toprol-Xl 25MG Tablets PO SCH (12:46)
--- NOTE | 2018-12-21 13:50 | PCM.NOTE ---
Date and Time: 12/21/18 1347 Subjective Assessment: Feeling much better than yesterday prior to surgery. He did have dilaudid x 2 overnight, otherwise has been taking norco. At the time of my exam he did want an injection of dilaudid. Surgery is releasing pt from their standpoint. His WBC were elevated this morning (to 18.2 from 15.8). Afebrile. Tolerating po. He did get up and walk a lot yesterday. - Review of Systems Constitutional: No Fever Abdominal/Gastrointestinal: Abdominal Pain Objective Exam General Appearance: no apparent distress, alert, obese Neurologic Exam: oriented x 3, cooperative Skin Exam: warm, dry, No rash Respiratory Exam: normal breath sounds, lungs clear, No crackles/rales, No rhonchi, No wheezing Cardiovascular Exam: regular rate/rhythm, normal heart sounds, No murmur Gastrointestinal/Abdomen Exam: soft, normal bowel sounds, tenderness (RUQ), other (dressings c/d/i), No distention, No mass, No guarding, No rebound Extremity Exam: normal inspection, swelling (trace pretibial edema bilat) Back Exam: normal inspection, No rash OBJECTIVE DATA Vital Signs: Vital Signs - 24 hr Temp Pulse Resp BP Pulse Ox 12/21/18 12:11 98.3 F 70 18 115/56 96 12/21/18 11:30 98 12/21/18 07:40 98.2 F 65 18 118/57 99 12/21/18 05:15 98.6 F 67 16 116/53 94 L 12/21/18 04:00 16 12/21/18 01:00 98.6 F 71 18 121/59 96 12/21/18 00:00 20 12/20/18 21:05 99.1 F 77 18 116/51 94 L 12/20/18 20:05 99.0 F 77 18 141/62 94 L 12/20/18 20:00 18 12/20/18 19:05 99.3 F 80 20 159/72 96 12/20/18 18:35 97.8 F 70 18 149/73 96 12/20/18 18:05 98.0 F 86 18 122/58 96 12/20/18 17:35 98.1 F 71 18 131/64 96 12/20/18 17:20 99.2 F 87 18 120/59 94 L 04/27/19 15:00 98.8 F 64 18 180/88 96 12/20/18 14:09 98.8 F 64 18 180/88 Oxygen-Last 24 hours O2 Percentage 2 Liters = 28% O2 Percentage 2 Liters = 28% O2 Percentage 2 Liters = 28% O2 Percentage 2 Liters = 28% O2 Percentage 2 Liters = 28% O2 Percentage 2 Liters = 28% O2 Percentage 2 Liters = 28% Pain Assessment - Last Documented Pain Intensity 5 Pain Scale Used 0-10 Pain Scale Intake and Output: Intake & Output 12/19/18 12/20/18 12/21/18 12/22/18 11:59 11:59 11:59 11:59 Intake Total 2412 Output Total 0 2075 Balance 0 337 Weight 146.9 kg 146.9 kg Lab Results: Lab Results-Last 24 Hours 12/21/18 12/21/18 12/21/18 Range/Units 05:00 05:50 05:50 WBC 18.2 H (4.0-10.5) K/mm3 RBC 4.44 (4.1-5.6) M/mm3 Hgb 12.5 (12.5-18.0) gm/dl Hct 38.1 L (42-50) % MCV 85.8 (78-100) fl MCH 28.2 (26-32) pg MCHC 32.8 (32-36) g/dl RDW 13.4 (11.5-14.0) % Plt Count 286 (150-450) K/mm3 MPV 11.2 H (6-9.5) fl Gran % 80.6 H (36.0-66.0) % Eos # (Auto) 0.04 (0-0.5) Absolute Lymphs (auto) 2.14 (1.0-4.6) Absolute Monos (auto) 1.31 H (0.0-1.3) Lymphocytes % 11.8 L (24.0-44.0) % Monocytes % 7.2 (0.0-12.0) % Eosinophils % 0.2 (0.00-5.0) % Basophils % 0.2 (0.0-0.4) % Absolute Granulocytes 14.69 H (1.4-6.9) Basophils # 0.03 (0-0.4) Sodium 138 (137-145) mmol/L Potassium 4.8 (3.5-5.1) mmol/L Chloride 102 (98-107) mmol/L Carbon Dioxide 28 (22-30) mmol/L Anion Gap 13.3 (5-15) MEQ/L BUN 10 (9-20) mg/dL Creatinine 0.97 (0.66-1.25) mg/dL Estimated GFR > 60.0 ML/MIN Glucose 129 H (74-106) mg/dL Hemoglobin A1c 5.28 (4.5-6.0) % Calcium 9.0 (8.4-10.2) mg/dL Total Bilirubin 0.40 (0.2-1.3) mg/dL AST 31 (17-59) U/L ALT 32 (0-50) U/L Alkaline Phosphatase 58 (38-126) U/L Serum Total Protein 6.8 (6.3-8.2) g/dL Albumin 3.7 (3.5-5.0) g/dL Radiology Exams: Radiology Procedures Category Date Time Status ABDOMEN AND PELVIS W CONTRAST [CT] Stat Exams 12/20/ 06:20 Completed Assessment/Plan (1) S/P cholecystectomy Current Visit: Yes Status: Acute Assessment & Plan: POD #1. Overall he is feeling well. With his elevated WBC count today, will keep him here. On day #2 of [facility]. Likely home tomorrow. Recheck labs in a.m. Code(s): Z90.49 - ACQUIRED ABSENCE OF OTHER SPECIFIED PARTS OF DIGESTIVE TRACT (2) HTN (hypertension) Current Visit: Yes Status: Chronic Qualifiers: Hypertension type: essential hypertension Qualified Code(s): I10 - Essential (primary) hypertension Assessment & Plan: BP are fine since the surgery. Code(s): I10 - ESSENTIAL (PRIMARY) HYPERTENSION
[2018-12-22] MEDS: DILAUDID 2 MG INJECTION IV PRN ×2 (00:05→03:42)
[2018-12-22] MEDS: Zosyn 3.375GM/100 Ml D5W 3.375 GM/100 ML IVPB IV SCH ×2 (00:07→07:09)
[2018-12-22 05:57] LABS: BASOPHIL % 0.3 % (0.0-0.4); Basophil (Absolute #) 0.04 (0-0.4); Eosinophil % 2.4 % (0.00-5.0); Granulocyte Absolute (ANC) 8.26 (1.4-6.9); Granulocytes % 65.2 % (36.0-66.0); Hematocrit 37.3 % (42-50); Hemoglobin 12.1 gm/dl (12.5-18.0); Lymphocytes % 23.7 % (24.0-44.0); Mean Cell Volume 87.1 fl (78-100); Mean Corpuscular Hgb Concent. 32.4 g/dl (32-36); Monocyte (Absolute #) 1.07 (0.0-1.3); Monocytes % 8.4 % (0.0-12.0); Platelet Count 259 K/mm3 (150-450); Red Blood Count 4.28 M/mm3 (4.1-5.6); Red Cell Distribution Width 13.6 % (11.5-14.0); White Blood Count 12.7 K/mm3 (4.0-10.5)
[2018-12-22 06:13] LABS: Mean Corpuscular Hemoglobin 28.2 pg (26-32)
[2018-12-22 06:44] LABS: ANION GAP 11.9 MEQ/L (5-15); BLOOD UREA NITROGEN 13 mg/dL (9-20); CHLORIDE 102 mmol/L (98-107); Carbon Dioxide 29 mmol/L (22-30); Creatinine 1 1.08 mg/dL (0.66-1.25); Glucose 104 mg/dL (74-106); Potassium 4.5 mmol/L (3.5-5.1); SODIUM 138 mmol/L (137-145)
[2018-12-22 07:52] VITALS: O2SAT 96
--- NOTE | 2018-12-22 08:39 | PCM.DS ---
Discharge Summary Date of Admission: 12/20/18 09:56 Admitting Physician: RODRI BENTON Consults: Consults on Case 12/20/18 10:09 Consult Surgery ROUTINE Primary Care Provider: RICH TIRADO Allergies Allergies No Known Drug Allergies Allergy (Verified 12/20/18 05:40) Hospital Summary - Hospital Course Hospital Course: Pt is a 33 yo male pt of Dr. Tirado who was admitted through ER with abdominal pain; found to have tiny gallstone and cholecystitis on CT abd/pelvis. WBC 15.8 and chemistry nl aside from BS 123; AST/ALT and Tbili wnl. Surgery was called who wanted medicine service to admit the pt. He had surgery that afternoon without noted complication with Dr. Savage, thank you. He does have a SAY drain in place. Yesterday, on POD #1, his WBC count had increased to 18.2. He stayed another day on IV zosyn and today his WBC are 12.7. He is still having some abd "soreness" but has been tolerating po well and up out of bed. Afebrile. Wants to go home today. Will be discharged on Augmentin 875 mg 1 po BID x 4d. - Vitals & Intake/Output Vital Signs: Vital Signs Temperature 98.4 F 12/22/18 07:51 Pulse Rate 63 12/22/18 07:51 Respiratory Rate 18 12/22/18 07:51 Blood Pressure 123/58 12/22/18 07:51 O2 Sat by Pulse Oximetry 96 12/22/18 07:51 Oxygen-Last Documented O2 Percentage 2 Liters = 28% Intake & Output: Intake & Output 12/19/18 12/20/18 12/21/18 12/22/18 11:59 11:59 11:59 11:59 Intake Total 2412 3643 Output Total 0 2075 1020 Balance 0 337 2623 Weight 146.9 kg 146.9 kg - Lab Result Diagrams: 12/22/18 05:35 12/22/18 05:35 Lab Results-Last 24 Hrs: Lab Results-Last 24 Hours 12/21/18 12/22/18 12/22/18 Range/Units 05:00 05:35 05:35 WBC 12.7 H (4.0-10.5) K/mm3 RBC 4.28 (4.1-5.6) M/mm3 Hgb 12.1 L (12.5-18.0) gm/dl Hct 37.3 L (42-50) % MCV 87.1 (78-100) fl MCH 28.2 (26-32) pg MCHC 32.4 (32-36) g/dl RDW 13.6 (11.5-14.0) % Plt Count 259 (150-450) K/mm3 MPV 11.0 H (6-9.5) fl Gran % 65.2 (36.0-66.0) % Eos # (Auto) 0.30 (0-0.5) Absolute Lymphs (auto) 3.00 (1.0-4.6) Absolute Monos (auto) 1.07 (0.0-1.3) Lymphocytes % 23.7 L (24.0-44.0) % Monocytes % 8.4 (0.0-12.0) % Eosinophils % 2.4 (0.00-5.0) % Basophils % 0.3 (0.0-0.4) % Absolute Granulocytes 8.26 H (1.4-6.9) Basophils # 0.04 (0-0.4) Sodium 138 (137-145) mmol/L Potassium 4.5 (3.5-5.1) mmol/L Chloride 102 (98-107) mmol/L Carbon Dioxide 29 (22-30) mmol/L Anion Gap 11.9 (5-15) MEQ/L BUN 13 (9-20) mg/dL Creatinine 1.08 (0.66-1.25) mg/dL Estimated GFR > 60.0 ML/MIN Glucose 104 (74-106) mg/dL Hemoglobin A1c 5.28 (4.5-6.0) % Calcium 9.0 (8.4-10.2) mg/dL - Procedures and Test Procedures and Tests throughout Hospitalization: Therapy Orders & Screens 12/20/18 18:28 Incentive Spirometry UD Comment: EVERY HOUR WHILE AWAKE Diagnosis: Ruq abdominal pain 12/21/18 04:27 Oxygen Nasal Cannula 2 lpm Comment: Diagnosis: Ruq abdominal pain Discharge Exam General Appearance: no apparent distress, alert, obese Neurologic Exam: oriented x 3, cooperative Skin Exam: normal color, warm, dry, No rash Respiratory Exam: normal breath sounds, lungs clear, No crackles/rales, No rhonchi, No wheezing Cardiovascular Exam: regular rate/rhythm, normal heart sounds, No murmur Gastrointestinal/Abdomen Exam: soft, normal bowel sounds, tenderness (RUQ), other (surgical wounds clean and dry, aside from some minimal blood at SAY site. There is minimal serosanginous to bloody discharge in the SAY bulb.) Extremity Exam: normal inspection Back Exam: normal inspection, No rash Final Diagnosis/Problem List - Final Discharge Diagnosis/Problem (1) S/P cholecystectomy Current Visit: Yes Status: Acute Assessment & Plan: POD #2. Has been on IV zosyn. Home on augmentin to finish 7d total antibiotic therapy. Surgery wrote norco 5/325 1 po q4h prn #21 for him to go home on. Code(s): Z90.49 - ACQUIRED ABSENCE OF OTHER SPECIFIED PARTS OF DIGESTIVE TRACT (2) HTN (hypertension) Current Visit: Yes Status: Chronic Assessment & Plan: Has been well controlled since his surgery. Code(s): I10 - ESSENTIAL (PRIMARY) HYPERTENSION - Discharge Disposition: Home, Self-Care Condition: Good Prescriptions: New Amoxicillin/Potassium Clav [Augmentin 875-125 Tablet] 875 mg PO BID #8 tablet Continue Metoprolol Succinate 25 mg Xl* [Toprol-Xl 25MG Tablets] 25 mg PO DAILY Follow up with: ANABEL VEE [COURTESY STAFF] - 1 Week
--- NOTE | 2018-12-22 08:46 | CONS ---
DATE OF SURGERY: 12/22/2018 HISTORY OF PRESENT ILLNESS: A 33 year-old overweight gentleman has had pain upper abdominal, right upper quadrant radiating up to his lower chest. It has been going on since last week, failed to improve. He came in and had some leukocytosis, had some gallstones, asked for surgical consult. He tried some Nexium and failed to improve. PAST MEDICAL HISTORY: Hypertension, obesity. PAST SURGICAL HISTORY: Lymph node removed in the past. No other abdominal surgery. MEDICATIONS: Metoprolol. ALLERGIES: NKDA. FAMILY HISTORY: Negative in regards to this problem. SOCIAL HISTORY: No smoking. No alcohol abuse. REVIEW OF SYSTEMS: Twelve systems reviewed per admission assessment pertinent for as noted above otherwise negative or noncontributory as above and per preadmission questionnaire. PHYSICAL EXAMINATION: GENERAL: Obese. No acute distress. HEENT: Sclerae nonicteric. NECK: No JVD. CHEST: Equal excursion, nonlabored breathing. CVS: Regular rhythm and pulse. ABDOMEN: Obese, soft, some tenderness in the upper abdomen. EXTREMITIES: No edema. NEURO: Alert, moving extremities grossly symmetrically. LAB DATA AND TESTS: CT showed dilated gallbladder, some edema, some gallstones. White blood cell 15.8, hemoglobin 14.9, PLT 271,000. His liver function test and lipase reported to be okay according to the emergency room physician. IMPRESSION: Acute abdominal pain. CT, history and physical exam findings are suspicious for acute exacerbation of chronic cholecystitis, cholelithiasis. I feel the patient will benefit from cholecystectomy. Risks and benefits explained in detail but not limited to bleeding or infection, risk of trocar injury or hernia, risk of bowel, bladder or blood vessel injury, risk of bile leak, bile duct injury, retained stone or sludge possibly requiring further procedure either open or ERCP, general risk of anesthesia, deep venous thrombosis, pulmonary embolism, pneumonia, possibility of open procedure, perioperative risk of aches, pains, bloating, constipation and/or loose stools possibly chronic in nature. Consent was obtained. Will proceed with laparoscopic cholecystectomy with possible open when OR time available.
[2018-12-22] MEDS: NORCO 5/325 MG PO PRN ×2 (09:23→11:20)
[2018-12-22] MEDS: Toprol-Xl 25MG Tablets PO SCH (09:38)
--- NOTE | 2018-12-22 10:23 | CONS ---
CONSULT DATE: 12/20/2018 HISTORY: Jae Freitas presents with right upper quadrant pain fairly severe. Seen and examined in the emergency room. White count 15,000. On physical examination he has some tenderness at McBurney's but he has no rebound. His abdomen was soft. There was no palpable mass. PAST MEDICAL HISTORY: ALLERGIES: NONE. MEDICATIONS: Antihypertensive. PAST SURGICAL HISTORY: None recent. SOCIAL HISTORY: Negative. FAMILY HISTORY: Negative. REVIEW OF SYSTEMS: Controlled hypertension and headaches. PHYSICAL EXAMINATION: Moderately obese. Vital signs normal. CHEST: Clear. COR: Regular. ABDOMEN: Weiss sign. No palpable mass. LAB DATA AND TESTS: White count 15.8. Diagnostic study showing gallbladder with stones. IMPRESSION: Acute cholecystitis, cholelithiasis. PLAN: Laparoscopic cholecystectomy, this is taking place tomorrow morning with Dr. Noland. Currently IV fluids, NPO and IV antibiotics.
--- NOTE | 2018-12-22 10:57 | OP ---
SURGERY DATE/TIME: 12/20/2018 1520 PREOPERATIVE DIAGNOSES: 1) Obesity. 2) Symptomatic cholelithiasis, acute on chronic cholecystitis. POSTOPERATIVE DIAGNOSES: 1) Obesity. 2) Symptomatic cholelithiasis, acute on chronic cholecystitis. PROCEDURE: Laparoscopic cholecystectomy. SURGEON: Dr. Leon Noland. ANESTHESIA: General. ESTIMATED BLOOD LOSS: 100 cc. INDICATIONS: As noted above. Risks and benefits explained in detail but not limited to and consent obtained. DESCRIPTION OF PROCEDURE AND FINDINGS: The patient taken to the OR. General anesthesia induced. Abdomen prepped and draped in the usual sterile fashion. After official time out and no disagreement with planned procedure, a transverse incision made mid epigastrium. However given his obesity, Veress needle was not easily reaching the peritoneal surface. Several stab wounds close to the umbilicus slightly close. Veress needle able to reach the pneumoperitoneum and tested with saline. Good hemostasis noted. Insufflation accomplished opening pressure of 0 - 15. A 5 mm bladeless port and camera inserted part of the way up the epigastrium with the gallbladder. Two - 5 mm right upper quadrant ports placed and 11 mm switched to 12 mm in the epigastrium. The gallbladder is thick walled, extensively inflamed. It required separate stab wound along the costal margin and aspirated 40 cc of bile out of the gallbladder to allow the gallbladder to be grasped as it was so distended and thick walled, had extensive inflammatory reaction. Extensive edema. It took some time but slowly and carefully cystic duct and infundibular junction slowly and carefully well skeletonized until critical view obtained both anterior and posteriorly. Once this was accomplished given the extensive inflammatory reaction a 12 port was placed in the epigastrium and a large clip was used for better secure control of the cystic duct stump this was clipped x3 and divided in the usual fashion. Had some small cystic arterial branches that were carefully isolated directly on the gallbladder wall, clipped and divided after peeling the lymph nodes back. Staying directly on the gallbladder wall the gallbladder is slowly and carefully dissected free from the almost concrete attachments to the liver bed this is quite extensive and inflamed required clipping additional oozing side branches off the cystic artery as necessary a little oozing staying directly on the gallbladder slowly and carefully dissected free. Quite friable gallbladder kind of wanted to fall apart. There is no evidence of any large stone spillage. Copious amount of irrigation was irrigated to clear the small amount of bile that spilled. Gallbladder released from final attachment to the anterior edge of the liver placed in a Pleatman sac pulled up the epigastrium which was slightly spread with a clamp allowing the Pleatman sac and gallbladder to be pulled free and passed off. Port replaced. Copious amount of irrigation accomplished lateral to the liver and subhepatic space irrigating until clear. SAY drain placed subhepatic space given the extensive inflammation, secured with PDS suture and placed to bulb suction. Copious amount of irrigation irrigating clear. The liver bed re-inspected. Clips noted to be in place cystic duct, cystic artery stumps. There were no signs of any active bleeding or bile leakage. This had been a very extensively inflamed raw dissection but it had been accomplished slowly, carefully and safely staying directly on the gallbladder wall. Good hemostasis noted. Fascial defect 12 mm site closed with figure-of-8 puncture closure device with #1 Vicryl. Pneumoperitoneum decompressed. The wound irrigated out. Skin incision closed with 4-0 Vicryl. Steri-Strips and sterile dressing applied. 0.25% Marcaine local injected along the skin incision fascial defect. The patient tolerated the procedure well. There were no immediate complications. Findings discussed with the family out in the waiting area.
[2018-12-22 12:24] VITALS: BP 151/67; PULSE 71
== END 2018-12-22 12:10 | disposition home or self-care (01) ==
LOC: ED 05:20 → MED SURG 09:56
PROVIDERS: ADMIT Family Medicine; ATTEND Family Medicine
DX: K80.12 Calculus of gallbladder with acute and chronic cholecystitis without obstruction (principal); I10 Essential (primary) hypertension; E66.9 Obesity, unspecified
CPT/HCPCS: 36415; 47562; 74177; 80048; 80053; 81001; 83036; 83690; 84484; 85025; 93268; 94760; 96360; 96361; 96374; 96375; 96376; 99285; G0378; J0330; J0694; J1100; J1170; J1885; J2270; J2405; J2543; J2550; J2704; J3010; A9270-GY